=== PATIENT | male | born 1960 | race Caucasian/White ===

== ENCOUNTER → 2025-04-09 | Outpatient (CLI) | payer OTHER, SELFPAY ==
--- NOTE | 2025-04-09 10:27 | RAD_ITS ---
PROCEDURE: ANKLE MIN 3 VIEWS 04/09/2025 REASON FOR EXAM: RIGHT ANKLE ARTHRITIS TECHNIQUE: ANKLE MIN 3 VIEWS COMPARISON: None. FINDINGS: Calcaneal spur formation. Enthesophyte formation at the calcaneal insertion of Achilles tendon. Mild degenerative joint disease of the tibiotalar, subtalar and tarsal joints. No fracture or dislocation is seen. No lytic or blastic bone lesion is identified. RAD/Ankle min 3 Views IMPRESSION: Mild degenerative joint disease. Reading Location: [facility]
== END | disposition home or self-care (01) ==
LOC: RAD 10:22
PROVIDERS: Referring Provider Chiropractor; Visit Provider Chiropractor
DX: M19.071 Primary osteoarthritis, right ankle and foot (principal)
CPT/HCPCS: 73610